=== PATIENT | male | born 1990 | race Caucasian/White ===

== ENCOUNTER 2017-05-18 16:24 | Emergency (ER) | payer OTHER ==
--- NOTE | 2017-05-18 16:29 | EDPHY ---
H & P Time Seen by Provider: 05/18/17 16:28 - Medical/Surgical History Hx Asthma: Yes Hx Chronic Respiratory Disease: No Hx Diabetes: No Hx Cardiac Disease: No Hx Renal Disease: No Hx Cirrhosis: No Hx Alcoholism: No Hx HIV/AIDS: No Hx Splenectomy or Spleen Trauma: No Other PMH: PMH: food allergy; asthma; bipolar; R 5th finger fx; R forarm fx;. PSH: gums; - Social History Smoking Status: Never smoked Constitutional: Initial Vital Signs Temperature (C) 37.2 C 05/18/17 16:26 Heart Rate 84 05/18/17 16:26 Respiratory Rate 18 05/18/17 16:26 Blood Pressure 142/90 H 05/18/17 16:26 O2 Sat (%) 98 05/18/17 16:26 O2 Delivery Mode Room Air Allergies/Adverse Reactions: nut - unspecified [nut] Allergy (Verified 05/18/17 16:25) peanut Allergy (Verified 05/18/17 16:25) seafood Allergy (Uncoded 04/14/15 10:01) Home Medications: Medication Instructions Recorded ALVESCO 07/26/14 Radha Allergy 07/26/14 Lamictal 07/26/14 Montelukast Sodium 07/26/14 Risperidone 07/26/14 Albuterol 04/14/15 Singulair 04/14/15 Wellbutrin Xl 04/14/15 Famotidine [Pepcid 20 MG (OTC)] 20 mg PO DAILY #10 tab 05/18/17 predniSONE 40 mg PO DAILY #10 tab 05/18/17 Medical Decision Making ED Course/Re-evaluation: CHIEF COMPLAINT: Allergic reaction HISTORY OF PRESENT ILLNESS: The patient is a 26 y/o male with a history of a nut allergy complaining of a swollen throat secondary to eating cashews 20 minutes ago. After eating the cashews he thew up. He then took 2 tabs of Benadryl and an Radha 20 minutes ago. No chest pain, abdominal pain, urinary or bowel complaints, fever. REVIEW OF SYSTEMS: A 10 point review of systems was performed and is negative with the exception of the elements mentioned in the history of present illness. PHYSICAL EXAM: HR, BP, O2 Sat, RR. Temp noted General Appearance: Alert, well hydrated, appropriate, and non-toxic appearing. Head: Atraumatic without scalp tenderness or obvious injury Eyes: Pupils equal, round, reactive to light and accommodation, EOMI, no trauma , no injection. Ears: Clear bilaterally, no perforation, normal landmarks Nose: Atraumatic, no rhinorrhea, clear. Throat: Swelling and erythema in posterior pharynx, swollen uvula. There is no exudates, no lesions, normal tonsils, mucus membranes moist. Neck: Supple, nontender, no lymphadenopathy. Respiratory: No retractions, no distress, no wheezes, and no accessory muscle use. Lungs are clear to auscultation bilaterally. Cardiovascular: Regular rate and rhythm, no murmurs, rubs, or gallops. Good capillary refill all extremities. Gastrointestinal: Abdomen is soft, nontender, non-distended, no masses, no rebound, no guarding, no peritoneal signs. Musculoskeletal: Normal active ROM of all extremities, atraumatic. Neurological: Alert, appropriate, and interactive. Non-focal neuro. Skin: No rashes, good turgor, no nodules on palpation. Past medical history: Nut allergy, asthma, bipolar Past surgical history: Denies Family history: Denies Social history: Friend at bedside, lives in [facility] DIFFERENTIAL DIAGNOSIS: The differential diagnosis included but was not limited to angioedema, anaphylaxis, anaphylactoid reaction, urticarial reaction, and other infectious causes for skin rash. MEDICAL DECISION MAKING The patient is a 26 y/o male with a history of a nut allergy presenting with an acute allergic reaction after eating some cashews 20 minutes ago. He is talking normally but his pharynx and uvula are swollen and erythematic. He is not in acute distress, so an IV does not need to be established yet. 1630: IM Epinephrine administered. 1635: 10mg PO Decadron and 40mg PO Pepcid administered. 1705: Reassessed patient and discussed plan to take Prednisone and Pepcid as prescribed. He is feeling better and the pharyngeal swelling has decreased. He has Epi-Pens that do not need to be filled. Return precautions provided; patient is comfortable with this plan. - Data Points Medications Given: Discontinued Medications Dexamethasone (Decadron) 10 mg PO EDNOW ONE Stop: 05/18/17 16:36 Last Admin: 05/18/17 16:38 Dose: 10 mg Epinephrine HCl (Epinephrine) 0.3 mg IM EDNOW ONE Stop: 05/18/17 16:31 Last Admin: 05/18/17 16:30 Dose: 0.3 mg Famotidine (Pepcid) 40 mg PO EDNOW ONE Stop: 05/18/17 16:37 Last Admin: 05/18/17 16:37 Dose: 40 mg Departure - Departure Disposition: Home, Routine, Self-Care Clinical Impression: Acute anaphylaxis Qualifiers: Encounter type: initial encounter Qualified Code(s): T78.2XXA - Anaphylactic shock, unspecified, initial encounter Allergic reaction Qualifiers: Encounter type: initial encounter Qualified Code(s): T78.40XA - Allergy, unspecified, initial encounter Condition: Good Instructions: Food Allergy (ED), Anaphylaxis (ED), General Allergic Reaction ( ED) Additional Instructions: 1. Take Prednisone as prescribed 2. Take Pepcid as prescribed. 3. Take Benadryl as needed. 4. Follow-up with your primary doctor within 72 hours. 5. Return to the Emergency Department for shortness of breath, difficulty swallowing, difficulty breathing, worsening of rash, fever or other worsening of condition. 6. Use EpiPen in case of allergic emergency. Referrals: Patient,NotPresent [Primary Care Provider] - As per Instructions Prescriptions: Famotidine [Pepcid 20 MG (OTC)] 20 mg PO DAILY #10 tab predniSONE 40 mg PO DAILY #10 tab Report Scribed for: Jose Alfonso Report Scribed by: Iliana Roberts Date of Report: 05/18/17 Time of Report: 17:04
[2017-05-18 16:31] VITALS: TEMP 99
[2017-05-18] MEDS ORDERED: FAMOTIDINE 20 MG TAB ONE (16:34)
[2017-05-18] MEDS ORDERED: DEXAMETHASONE 4 MG TAB ONE (16:34)
[2017-05-18] MEDS ORDERED: DEXAMETHASONE 4 MG TAB PO ONE (16:35)
[2017-05-18] MEDS ORDERED: FAMOTIDINE 20 MG TAB PO ONE (16:36)
[2017-05-18 16:40] VITALS: RESP 16
[2017-05-18 17:16] VITALS: BP 136/96; PULSE 96; O2SAT 95
== END 2017-05-18 17:15 | disposition home or self-care (01) ==
DX: T78.2XXA Anaphylactic shock, unspecified, initial encounter (principal); J45.909 Unspecified asthma, uncomplicated; Z91.010 Allergy to peanuts
CPT/HCPCS: J0171